=== PATIENT | female | born 1970 | race Caucasian/White ===

== ENCOUNTER 2016-06-11 17:26 | Emergency (ER) | payer BC, OTHER ==
[~2016-06-11] VITALS: Ht 162.6 cm; Wt 73.0 kg
[~2016-06-11 17:26] MED LIST: IBUP600T26 PO
[2016-06-11 17:28] VITALS: BP 135/80; PULSE 95; RESP 15; TEMP 98; O2SAT 98
[2016-06-11] MEDS ORDERED: SODIUM CHLOR 0.9% 1000 ML INJ 1,000 ML IV SCH (17:47)
--- NOTE | 2016-06-11 17:54 | PD ---
HPI Chief Complaint: Abdominal Pain Time Seen by Provider: 17:38 Travel History International Travel<30 days: No Contact w/Intl Traveler<30days: No Traveled to known affect area: No History of Present Illness HPI Patient is a 45-year-old female who presents to emergency room with complaints of nausea vomiting diarrhea since Monday. Patient reports that she was receiving treated for abdominal shingles with steroids as well as antibiotics. Patient reports that she completed her full course of antibiotics on Monday, she cannot remember which antibiotic she was taking. Patient reports that by Monday, she began to feel nauseous and had multiple episodes of vomiting as well as diarrhea. Patient reports that she is having foul smelling diarrhea with increased abdominal cramping with no abdominal pain at this time. Patient reports no fevers or chills. Reports that she is comfortable at this time. Denies dysuria, urinary urgency or frequency. PFSH Past Medical History ?: Not Past Surgical History Hysterectomy: Yes Social History Alcohol Use: No Tobacco Use: No Substance Use: No Allergies-Medications (Allergen,Severity, Reaction): Coded Allergies: Oyster (Verified Allergy, Severe, 06/11/16) Reported Meds & Prescriptions Reported Meds & Active Scripts Active Ibuprofen 600 Mg Tab 600 Mg PO QID 5 Days Review of Systems General / Constitutional: No: Fever Eyes: No: Visual changes HENT: No: Headaches Cardiovascular: No: Chest Pain or Discomfort Respiratory: No: Shortness of Breath Gastrointestinal: Positive: Nausea, Vomiting, Diarrhea, No: Abdominal Pain Genitourinary: No: Dysuria Musculoskeletal: No: Pain Skin: No Rash Neurologic: No: Weakness Psychiatric: No: Depression Endocrine: No: Polydipsia Hematologic/Lymphatic: No: Easy Bruising Physical Exam Narrative GENERAL: No acute distress, nontoxic SKIN: Warm and dry. HEAD: Atraumatic. Normocephalic. EYES: Pupils equal and round. No scleral icterus. No injection or drainage. ENT: No nasal bleeding or discharge. Mucous membranes pink and moist. NECK: Trachea midline. No JVD. CARDIOVASCULAR: Regular rate and rhythm. No murmur appreciated. RESPIRATORY: No accessory muscle use. Clear to auscultation. Breath sounds equal bilaterally. GASTROINTESTINAL: Abdomen soft, nondistended, mild tenderness the epigastrium with no rebound or guarding on exam. Hepatic and splenic margins not palpable. MUSCULOSKELETAL: No obvious deformities. No clubbing. No cyanosis. No edema. NEUROLOGICAL: Awake and alert. No obvious cranial nerve deficits. Motor grossly within normal limits. Normal speech. PSYCHIATRIC: Appropriate mood and affect; insight and judgment normal. Data Data Last Documented VS Vital Signs Date Time Temp Pulse Resp B/P Pulse Ox O2 Delivery O2 Flow Rate FiO2 06/11/16 17:28 98.0 95 15 135/80 98 Orders Complete Blood Count With Diff (06/11/16 17:47) Comprehensive Metabolic Panel (06/11/16 17:47) Lipase (06/11/16 17:47) Prothrombin Time / Inr (Pt) (06/11/16 17:47) Act Partial Throm Time (Ptt) (06/11/16 17:47) Urinalysis - C+S If Indicated (06/11/16 17:47) Iv Access Insert/Monitor (06/11/16 17:47) Ondansetron Inj (Zofran Inj) (06/11/16 18:00) Sodium Chlor 0.9% 1000 Ml Inj (Ns 1000 M (06/11/16 17:47) Sodium Chloride 0.9% Flush (Ns Flush) (06/11/16 18:00) Famotidine Inj (Pepcid Inj) (06/11/16 18:00) Dicyclomine (Bentyl) (06/11/16 18:00) Ed Urine Pregnancytest Poc (06/11/16 17:47) C Diff Toxin Pcr (06/11/16 17:47) MDM Medical Decision Making Medical Screen Exam Complete: Yes Emergency Medical Condition: Yes Interpretation(s) Vital Signs Date Time Temp Pulse Resp B/P Pulse Ox O2 Delivery O2 Flow Rate FiO2 06/11/16 17:28 98.0 95 15 135/80 98 Differential Diagnosis Gastroenteritis, gastritis, C. difficile colitis, viral syndrome, electrolyte abnormality Narrative Course Patient is a 45-year-old female who presents to emergency room with nausea vomiting diarrhea since Monday. Patient reports that she recently completed a course of antibiotics on Monday for shingles which has probably resolved at this time. Patient reports that she has not been able to keep any fluids down past few days and reports increased dehydration. Overall, patient is nontoxic. An IV was placed, labs were ordered, C. difficile culture ordered as there is concern for possible C. difficile given her recent antibiotics and diarrhea. Will give patient fluids and antiemetics and treat symptomatically. Gemini Muhammad DO Jun 11, 2016 17:54
[2016-06-11] MEDS ORDERED: SODIUM CHLORIDE 0.9% FLUSH 5 ML FLUSH IVF PRN (18:00)
[2016-06-11] MEDS ORDERED: ONDANSETRON HCL 4 MG/2 ML VIAL IVP ONE (18:00)
[2016-06-11] MEDS ORDERED: DICYCLOMINE HCL 10 MG CAP PO ONE (18:00)
[2016-06-11] MEDS ORDERED: FAMOTIDINE 20 MG/2 ML VIAL IV PUSH ONE (18:00)
[2016-06-11 18:32] LABS: AUTOMATED NEUTROPHIL # 4.6 TH/MM3 (1.8-7.7); BASOPHIL % 0.4 % (0.0-2.0); EOSINOPHIL % 0.5 % (0.0-4.0); HEMATOCRIT 41.2 % (35.0-46.0); HEMO FLAGS DIFF FINAL; LYMPH % 28.9 % (9.0-44.0); LYMPHOCYTE # 2.1 TH/MM3 (1.0-4.8); MEAN CELL VOLUME 95.9 FL (80.0-100.0); MEAN CORPUSCULAR HEMOGLOBIN 32.2 PG (27.0-34.0); MEAN CORPUSCULAR HGB CONC 33.6 % (32.0-36.0); MONO % 6.5 % (0.0-8.0); NEUT % 63.7 % (16.0-70.0); PLATELET COUNT 333 TH/MM3 (150-450); RED CELL DISTRIBUTION WIDTH 13.1 % (11.6-17.2); WHITE BLOOD COUNT 7.3 TH/MM3 (4.0-11.0)
[2016-06-11 18:41] LABS: APTT (PATIENT) 28.5 SEC (24.3-30.1); PROTHROMBIN TIME - PATIENT 10.9 SEC (9.8-11.6)
[2016-06-11 19:01] LABS: ANION GAP 6 MEQ/L (5-15); BICARBONATE 28.5 MEQ/L (21.0-32.0); BLOOD UREA NITROGEN 7 MG/DL (7-18); CHLORIDE 107 MEQ/L (98-107); GLOMERULAR FILTRATION RATE 63 ML/MIN (>89); SODIUM (NA) 141 MEQ/L (136-145)
[2016-06-11 19:02] LABS: POTASSIUM 3.8 MEQ/L (3.5-5.1)
[2016-06-11 19:24] LABS: ALKALINE PHOSPHATASE 102 U/L (45-117); ALT (GPT) 130 U/L (10-53); AST (GOT) 106 U/L (15-37); TOTAL BILIRUBIN ADULT 0.4 MG/DL (0.2-1.0)
[2016-06-11 19:46] LABS: BACTERIA, URINE RARE /hpf; BLOOD, URINE NEG (NEG); COMMENT (UR) CULT NOT INDICATED; CULTURE IF INDICATED CULT NOT INDICATED; GLUCOSE,URINE NEG (NEG); KETONE, URINE NEG (NEG); NITRITE,URINE NEG (NEG); PH, URINE 5.5 (5.0-8.5); SQUAMOUS EPITHELIAL CELL URINE 1 /hpf (0-5); URINE COLOR LIGHT-YELLOW (YELLW/STRAW)
--- NOTE | 2016-06-11 21:09 | PD ---
Physical Exam Narrative GENERAL: Well-nourished, well-developed patient. SKIN: Warm and dry. HEAD: Normocephalic and atraumatic. EYES: No injection or drainage. ENT: No nasal drainage noted. NECK: Supple, trachea midline. CARDIOVASCULAR: Regular rate and rhythm RESPIRATORY: no increased effort. No accessory muscle use. NEUROLOGICAL: Awake and alert. Motor and sensory grossly within normal limits. Normal speech. Data Data Last Documented VS Vital Signs Date Time Temp Pulse Resp B/P Pulse Ox O2 Delivery O2 Flow Rate FiO2 06/11/16 17:28 98.0 95 15 135/80 98 Orders Complete Blood Count With Diff (06/11/16 17:47) Comprehensive Metabolic Panel (06/11/16 17:47) Lipase (06/11/16 17:47) Prothrombin Time / Inr (Pt) (06/11/16 17:47) Act Partial Throm Time (Ptt) (06/11/16 17:47) Urinalysis - C+S If Indicated (06/11/16 17:47) Iv Access Insert/Monitor (06/11/16 17:47) Ondansetron Inj (Zofran Inj) (06/11/16 18:00) Sodium Chlor 0.9% 1000 Ml Inj (Ns 1000 M (06/11/16 17:47) Sodium Chloride 0.9% Flush (Ns Flush) (06/11/16 18:00) Famotidine Inj (Pepcid Inj) (06/11/16 18:00) Dicyclomine (Bentyl) (06/11/16 18:00) Ed Urine Pregnancytest Poc (06/11/16 17:47) C Diff Toxin Pcr (06/11/16 17:47) Labs Laboratory Tests Test 06/11/16 06/11/16 18:15 19:30 White Blood Count 7.3 TH/MM3 Red Blood Count 4.30 MIL/MM3 Hemoglobin 13.8 GM/DL Hematocrit 41.2 % Mean Corpuscular Volume 95.9 FL Mean Corpuscular Hemoglobin 32.2 PG Mean Corpuscular Hemoglobin 33.6 % Concent Red Cell Distribution Width 13.1 % Platelet Count 333 TH/MM3 Mean Platelet Volume 8.0 FL Neutrophils (%) (Auto) 63.7 % Lymphocytes (%) (Auto) 28.9 % Monocytes (%) (Auto) 6.5 % Eosinophils (%) (Auto) 0.5 % Basophils (%) (Auto) 0.4 % Neutrophils # (Auto) 4.6 TH/MM3 Lymphocytes # (Auto) 2.1 TH/MM3 Monocytes # (Auto) 0.5 TH/MM3 Eosinophils # (Auto) 0.0 TH/MM3 Basophils # (Auto) 0.0 TH/MM3 CBC Comment DIFF FINAL Differential Comment Prothrombin Time 10.9 SEC Prothromb Time International 1.0 RATIO Ratio Activated Partial 28.5 SEC Thromboplast Time Sodium Level 141 MEQ/L Potassium Level 3.8 MEQ/L Chloride Level 107 MEQ/L Carbon Dioxide Level 28.5 MEQ/L Anion Gap 6 MEQ/L Blood Urea Nitrogen 7 MG/DL Creatinine 0.96 MG/DL Estimat Glomerular Filtration 63 ML/MIN Rate Random Glucose 92 MG/DL Calcium Level 8.4 MG/DL Total Bilirubin 0.4 MG/DL Aspartate Amino Transf 106 U/L (AST/SGOT) Alanine Aminotransferase 130 U/L (ALT/SGPT) Alkaline Phosphatase 102 U/L Total Protein 7.5 GM/DL Albumin 4.0 GM/DL Lipase 108 U/L Urine Color LIGHT-YELLOW Urine Turbidity CLEAR Urine pH 5.5 Urine Specific [place] 1.003 Urine Protein NEG mg/dL Urine Glucose (UA) NEG mg/dL Urine Ketones NEG mg/dL Urine Occult Blood NEG Urine Nitrite NEG Urine Bilirubin NEG Urine Urobilinogen LESS THAN 2.0 MG/DL Urine Leukocyte Esterase NEG Urine RBC 1 /hpf Urine Squamous Epithelial 1 /hpf Cells Urine Bacteria RARE /hpf Microscopic Urinalysis Comment CULT NOT INDICATED MDM Supervised Visit with SAMARA: No Interpretation(s) CBC & BMP Diagram 06/11/16 18:15 Narrative Course Signed over to me to follow blood work and if normal to discharge home. Blood work is normal. Patient is feeling better. Patient unable to give stool study here. Given prescription that she can have this done as an outpatient if diarrhea persists and a follow-up outpatient.Patient denies any new complaints and states that they are feeling better. Patient happy with care, all questions answered. Patient knows that follow up is incumbent on them and to return to the emergency room immediately if new or worsening symptoms develop. Patient given strict return precautions, vitals reviewed and are normal, agrees to further workup as an outpatient. Diagnosis Primary Impression: Diarrhea Qualified Code: R19.7 - Diarrhea, unspecified type Additional Impression: Abdominal pain Qualified Code: R10.9 - Abdominal pain, unspecified location Patient Instructions: General Instructions Additional Instruction: return as needed, follow with primary monday, keep hydrated, go to lab if diarrhea persists give stool specimen for cdiff Med/Other Pt SpecificInfo: No Change to Meds Disposition: 01 DISCHARGE HOME Condition: Stable Carmen Staton MD Jun 11, 2016 21:09
== END 2016-06-11 21:43 | disposition home or self-care (01) ==
LOC: NEPC 17:26
DX: R19.7 Diarrhea, unspecified (principal); R10.9 Unspecified abdominal pain
CPT/HCPCS: 80053; 81001; 83690; 84703; 85025; 85610; 85730; 96374; 96375; 99284; J2405; J7030

== ENCOUNTER 2016-07-09 14:46 | Emergency (ER) | payer BC, OTHER ==
[~2016-07-09] VITALS: Ht 162.6 cm; Wt 78.0 kg
[2016-07-09 14:47] VITALS: BP 122/75; PULSE 113; RESP 15; TEMP 98.2; O2SAT 98
--- NOTE | 2016-07-09 16:27 | PD ---
HPI Chief Complaint: Complaint Time Seen by Provider: 16:26 Travel History International Travel<30 days: No Contact w/Intl Traveler<30days: No Traveled to known affect area: No History of Present Illness HPI 45-year-old female presents to the emergency Department with complaint of dysuria, urgency, frequency, hesitancy that started this morning with worsening around 1 PM today. Patient is legally blind and has history of UTI with similar symptoms. She has not taken any medications or tried any treatments to alleviate her symptoms. She denies fever, chills, nausea, vomiting, abdominal pain. Denies pelvic pain, change in vaginal discharge or odor. Denies low back pain. Has established primary care provider. Allergies to oysters. No other modifying factors or associated signs and symptoms. PFSH Past Medical History ?: Not Past Surgical History Hysterectomy: Yes Social History Alcohol Use: No Tobacco Use: No Substance Use: No Allergies-Medications (Allergen,Severity, Reaction): Coded Allergies: Oyster (Verified Allergy, Severe, 06/11/16) Reported Meds & Prescriptions Reported Meds & Active Scripts Active Ibuprofen 800 Mg Tab 800 Mg PO Q6HR PRN Pyridium (Phenazopyridine HCl) 100 Mg Tab 100 Mg PO Q8H PRN Keflex (Cephalexin) 500 Mg Cap 500 Mg PO Q12H 7 Days Review of Systems Except as stated in HPI: all other systems reviewed are Neg Physical Exam Narrative GENERAL: Well-nourished, well-developed female patient, in no acute distress; afebrile, nontoxic appearing SKIN: Warm and dry. No rash. HEAD: Atraumatic. Normocephalic. EYES: Pupils equal and round. No scleral icterus. No injection or drainage. ENT: Mucosa pink and moist. NECK: Trachea midline. CARDIOVASCULAR: Regular rate and rhythm. No murmur appreciated. RESPIRATORY: No accessory muscle use. Clear to auscultation. Breath sounds equal bilaterally. GASTROINTESTINAL: Abdomen soft, non-tender, nondistended. Hepatic and splenic margins not palpable. Bowel sounds are active 4 quadrants. Bladder nontender and nondistended. MUSCULOSKELETAL: No obvious deformities. No clubbing. No cyanosis. No edema. BACK: No CVA tenderness NEUROLOGICAL: Awake and alert. Oriented 3. No obvious cranial nerve deficits. Motor grossly within normal limits. Normal speech. Moves all extremities. 5/5 strength to all extremities. PSYCHIATRIC: Appropriate mood and affect; insight and judgment normal. Data Data Last Documented VS Vital Signs Date Time Temp Pulse Resp B/P Pulse Ox O2 Delivery O2 Flow Rate FiO2 07/09/16 14:47 98.2 113 15 122/75 98 Orders Urinalysis - C+S If Indicated (07/09/16 15:53) Urine Culture (07/09/16 16:05) Cephalexin (Keflex) (07/09/16 17:00) Phenazopyridine (Pyridium) (07/09/16 17:00) Labs Laboratory Tests Test 07/09/16 16:05 Urine Color LIGHT-YELLOW Urine Turbidity CLEAR Urine pH 5.0 Urine Specific [place] 1.008 Urine Protein NEG mg/dL Urine Glucose (UA) NEG mg/dL Urine Ketones NEG mg/dL Urine Occult Blood MOD Urine Nitrite NEG Urine Bilirubin NEG Urine Urobilinogen LESS THAN 2.0 MG/DL Urine Leukocyte Esterase LARGE Urine RBC 8 /hpf Urine WBC 53 /hpf Urine Squamous Epithelial <1 /hpf Cells Urine Bacteria RARE /hpf Urine Mucus FEW /lpf Microscopic Urinalysis Comment CULTURE INDICATED MDM Medical Decision Making Medical Screen Exam Complete: Yes Emergency Medical Condition: Yes Medical Record Reviewed: Yes Differential Diagnosis UTI, pyelonephritis, cystitis Narrative Course 45-year-old female, legally blind, with dysuria and urinary symptoms. No CVA tenderness. Patient is afebrile and nontoxic-appearing. Heart rate recheck on physical exam is approximately 90-100 bpm. Denies vaginal symptoms. Urinalysis ordered. 1653: Urinalysis was signs of infection. Urine Culture pending. I will administer first dose of antibiotic in the ER secondary to the patient being legally blind and having difficulty with transportation. Keflex and Pyridium administered in the ER. Keflex and Pyridium prescribed for home. Patient is medically cleared and stable for discharge. Discussed reasons to return to the emergency department. Instructed patient to follow up with primary care provider. Patient agrees with treatment plan. The patients vital signs are stable and the patient is stable for outpatient follow-up and treatment. Patient discharged home, stable and in no acute distress. Diagnosis Primary Impression: Urinary tract infection Qualified Code: N39.0 - Urinary tract infection without hematuria, site unspecified Referrals: Primary Care Physician Patient Instructions: General Instructions, Urinary Tract Infection in Women ( ED) Additional Instructions: Take antibiotics as prescribed and complete full course Take Pyridium for bladder spasms: Pyridium will turn your urine bright orange Drink plenty of fluids Maintain good personal hygiene Follow-up with primary care provider Return to the emergency department immediately with worsening of symptoms Med/Other Pt SpecificInfo: Prescription(s) given Scripts Ibuprofen 800 Mg [id number] Mg PO Q6HR PRN (PAIN) #30 TAB Ref 0 Prov:Courtney Allison 07/09/16 Phenazopyridine (Pyridium)100 Mg [id number] Mg PO Q8H PRN (DYSURIA) #10 TAB Ref 0 Prov:Courtney Allison 07/09/16 Cephalexin (Keflex)500 Mg [id number] Mg PO Q12H 7 Days Ref 0 Prov:Courtney Allison 07/09/16 Disposition: 01 DISCHARGE HOME Condition: Stable Courtney Allison Jul 09, 2016 16:27
[2016-07-09] MEDS ORDERED: IBUP800T23 PO (16:36)
[2016-07-09] MEDS ORDERED: CEPH-460 PO (16:36)
[2016-07-09] MEDS ORDERED: PHEN0.4T PO (16:36)
[2016-07-09 16:45] LABS: BACTERIA, URINE RARE /hpf; BLOOD, URINE MOD (NEG); COMMENT (UR) CULTURE INDICATED; CULTURE IF INDICATED CULTURE INDICATED; GLUCOSE,URINE NEG (NEG); KETONE, URINE NEG (NEG); MUCUS URINE FEW /lpf (OCC); NITRITE,URINE NEG (NEG); SQUAMOUS EPITHELIAL CELL URINE <1 /hpf (0-5); URINE COLOR LIGHT-YELLOW (YELLW/STRAW)
[2016-07-09] MEDS ORDERED: CEPHALEXIN MONOHYDRATE 500 MG CAP PO ONE (17:00)
[2016-07-09] MEDS ORDERED: PHENAZOPYRIDINE HCL 200 MG TAB PO ONE (17:00)
== END 2016-07-09 17:34 | disposition home or self-care (01) ==
LOC: NEPB 14:46
DX: N39.0 Urinary tract infection, site not specified (principal); B96.20 Unspecified Escherichia coli [E. coli] as the cause of diseases classified elsewhere
CPT/HCPCS: 81001; 87077; 87086; 87186; 99283

== ENCOUNTER 2017-08-26 17:24 | Emergency (ER) | payer BC, OTHER ==
[~2017-08-26] VITALS: Ht 162.6 cm; Wt 84.0 kg
[~2017-08-26 17:24] MED LIST changes: +CEPH-460 PO; +IBUP1TAB7 PO; -IBUP600T26 PO; +PHEN0.4T PO
[2017-08-26 17:27] VITALS: BP 132/77; PULSE 91; RESP 16; TEMP 98.5; O2SAT 100
[2017-08-26] MEDS ORDERED: MULT-65 PO (17:37)
--- NOTE | 2017-08-26 17:56 | PD ---
HPI Chief Complaint: Skin Problem Time Seen by Provider: 17:40 Travel History International Travel<30 days: No Contact w/Intl Traveler<30days: No Traveled to known affect area: No History of Present Illness HPI 46-year-old legally blind patient presents emergency department with question of shingles to the left side of her face. She has tenderness along the left trigeminal nerve, with question of rash to the left anterior cheek and behind the left ear. Patient states history of recurrent shingles in the past. Patient states she is felt general malaise, fevers, and increased pain in this area suggestive of possible shingles. She denies dental issues or pain. Denies any difficulty swallowing. No cough or shortness of breath. Patient states the area behind the ear has been somewhat itchy and moist over the past 2 weeks. She has allergies to oyster extract otherwise no known drug allergies. PFSH Past Medical History ?: Not Past Surgical History Hysterectomy: Yes Social History Alcohol Use: No Tobacco Use: No Substance Use: No Allergies-Medications (Allergen,Severity, Reaction): Coded Allergies: oyster extract (Unverified Allergy, Severe, 08/26/17) Reported Meds & Prescriptions Reported Meds & Active Scripts Active Reported Multi-Vitamin Daily (Multiple Vitamin) 1 Tab Tab 1 Tab PO DAILY Review of Systems Except as stated in HPI: all other systems reviewed are Neg General / Constitutional: No: Fever Eyes: No: Visual changes HENT: No: Headaches Cardiovascular: No: Chest Pain or Discomfort Respiratory: No: Shortness of Breath Gastrointestinal: No: Abdominal Pain Genitourinary: No: Dysuria Musculoskeletal: No: Pain Skin: Positive Rash, Positive Itching, Positive Lesions (See history of present illness per) Neurologic: No: Weakness Psychiatric: No: Depression Endocrine: No: Polydipsia Hematologic/Lymphatic: No: Easy Bruising Physical Exam Narrative GENERAL: Patient appears in no obvious distress SKIN: Warm and dry. Normal color. Normal turgor. Patient has several small possible pustular lesions along the left trigeminal nerve distribution. The area behind the ear appears to be more consistent with eczema or psoriasis type lesion. HEAD: Atraumatic. Normocephalic. EYES: Pupils equal and round. No scleral icterus. No injection or drainage. ENT: No nasal bleeding or discharge. Mucous membranes pink and moist. Pharynx is clear. Airways patent. NECK: Trachea midline. Supple and nontender. CARDIOVASCULAR: Regular rate and rhythm. RESPIRATORY: No accessory muscle use. Clear to auscultation. Breath sounds equal bilaterally. MUSCULOSKELETAL: Extremities without clubbing, cyanosis, or edema. No obvious deformities. NEUROLOGICAL: Awake and alert. No obvious cranial nerve deficits. Motor grossly within normal limits. Five out of 5 muscle strength in the arms and legs. Normal speech. PSYCHIATRIC: Appropriate mood and affect; insight and judgment normal. Data Data Last Documented VS Vital Signs Date Time Temp Pulse Resp B/P (MAP) Pulse Ox O2 Delivery O2 Flow Rate FiO2 08/26/17 17:27 98.5 91 16 132/77 (95) 100 MDM Medical Decision Making Medical Screen Exam Complete: Yes Emergency Medical Condition: Yes Medical Record Reviewed: Yes Differential Diagnosis Possible early shingles. Psoriasis. Eczema. Tinea Narrative Course Patient will be treated with Valtrex 1000 mg 3 times daily for 7 days. Patient is given Lotrisone to apply to the area behind the ear twice daily for the next 2 weeks Patient to follow-up with her primary care physician Diagnosis Primary Impression: Shingles rash Qualified Codes: B02.9 - Zoster without complications Additional Impression: Tinea Patient Instructions: General Instructions, Shingles (ED), Skin Yeast Infection (ED) Additional Instructions: Patient will be treated with Valtrex 1000 mg 3 times daily for 7 days. Patient is given Lotrisone to apply to the area behind the ear twice daily for the next 2 weeks Patient to follow-up with her primary care physician Disposition: 01 DISCHARGE HOME Condition: Stable Loi Shaikh Aug 26, 2017 17:56
[2017-08-26] MEDS ORDERED: LOTR15T TOPICAL (17:57)
[2017-08-26] MEDS ORDERED: VALT1TAB PO (17:57)
== END 2017-08-26 18:06 | disposition home or self-care (01) ==
LOC: NEPD 17:24
DX: B02.9 Zoster without complications (principal); B35.9 Dermatophytosis, unspecified; R53.81 Other malaise; R50.9 Fever, unspecified
CPT/HCPCS: 99283